=== PATIENT | male | born 1995 | race African-American/Black ===

== ENCOUNTER → 2017-06-09 | Outpatient (CLI) | payer OTHER | END | disposition home or self-care (01) | LOC: C.RDSM 13:19 | PROVIDERS: ATTEND Family Medicine | DX: M25.871 Other specified joint disorders, right ankle and foot (principal) ==

== ENCOUNTER → 2017-06-17 | Outpatient (CLI) | payer OTHER ==
[2017-06-17 14:44] LABS: DAYS OF ABSTINENCE 3; METHOD OF COLLECTION MASTURBATION; SEMEN COLOR GRAY OR GRAY-WHITE (GRY/GRYWHTE); SEMEN TIME OF COLLECTION 1210; TYPE OF SPECIMEN CONTAINER STERILE
[2017-06-17 17:42] LABS: SPERM VIABILITY STAIN 35% % (>58%)
== END | disposition home or self-care (01) ==
LOC: C.LAB 12:45
PROVIDERS: ATTEND Urology
DX: N46.9 Male infertility, unspecified (principal)